=== PATIENT | male | born 1930 | race Caucasian/White ===

== ENCOUNTER 2016-11-18 09:09 | Emergency (ER) | payer OTHER ==
[~2016-11-18 09:09] MED LIST: AMLO5 PO; BUME2TAB PO; COZA100T PO; EPINEPHrine HCL (1:10,000) 1 MG/10 ML SYRINGE IV ONE; FERR140T PO; GLIM4TAB PO; ISOS20TA38 PO; KLOR20TA6 PO; METF-324 PO; METO50TA PO; OMEP20TA PO; PRAV80 PO; RAMI10CA35 PO; TERA2CAP3 PO
--- NOTE | 2016-11-18 09:40 | PD ---
HPI Chief Complaint: Code Blue Time Seen by Provider: 09:27 Travel History International Travel<30 days: No Contact w/Intl Traveler<30days: No Traveled to known affect area: No History of Present Illness HPI 86-year-old male was brought in by EMS in cardiopulmonary arrest. Patient was found unresponsive in his reclining chair this morning. Patient usually sleep in the reclining chair. Patient has history of attention, diabetes, dyslipidemia. Patient is a nonsmoker. 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 Family member states the patient had diaphoresis this morning. ACLS protocol started by EMS. Chest compression started by EMS. Patient was intubated with a Combitube by EMS. Patient was ventilated via Combitube. Patient was given epinephrine IO [address] to the ED. Patient was brought to the ED unresponsive, in [place]. PFSH Past Medical History Arthritis: Yes Blood Disorders: No Heart Rhythm Problems: Yes Cancer: Yes (PROSTATE, SKIN) Cardiovascular Problems: Yes High Cholesterol: Yes Chemotherapy: No Chest Pain: Yes Congestive Heart Failure: No Diabetes: Yes Endocrine: No Genitourinary: Yes Hypertension: Yes Kidney Stones: Yes Musculoskeletal: Yes Neurologic: No Psychiatric: No Respiratory: No Myocardial Infarction: Yes Radiation Therapy: Yes Triglycerides - High: Yes Past Surgical History Abdominal Surgery: No Cardiac Surgery: Yes (CABAG) Endocrine Surgery: No Genitourinary Surgery: No (APPENDECTOMY) Gynecologic Surgery: No Thoracic Surgery: No Other Surgery: Yes (BACK) Social History Alcohol Use: No Tobacco Use: No Allergies-Medications (Allergen,Severity, Reaction): Coded Allergies: No Known Allergies (Verified Allergy, Unknown, 02/10/05) Reported Meds & Prescriptions Reported Meds & Active Scripts Active Metoprolol Tartrate 50 Mg Tab 50 Mg PO Q12 30 Days Norvasc (Amlodipine Besylate) 5 Mg Tab 2.5 Mg PO DAILY 30 Days Pravastatin Sodium (Pravastatin Sod) 80 Mg Tab 80 Mg PO HS 30 Days Reported Ferrous Sulfate 140 Mg Tab 325 Mg PO DAILY Isosorbide Mononitrate 20 Mg Tab 30 Mg PO DAILY Omeprazole 20 Mg Tab 20 Mg PO DAILY Bumetanide 2 Mg Tab 2 Mg PO BID Terazosin Hcl (Terazosin HCl) 2 Mg Cap 2 Mg PO DAILY Cozaar (Losartan Potassium) 100 Mg Tab 100 Mg PO DAILY Klor-Con M20 (Potassium Chloride Microencaps) 20 Meq Tab 20 Meq PO DAILY Glimepiride 4 Mg Tab 4 Mg PO DAILY Metformin HCl ER (Metformin HCl) 1,000 Mg Tab 500 Mg PO BIDPC Review of Systems ROS Limitations: Intubated, Unresponsive Physical Exam Narrative GENERAL: Well-nourished, well-developed patient. SKIN: Warm and dry. HEAD: Normocephalic. EYES: No scleral icterus. No injection or drainage. Pupils dilated, nonreactive. NECK: Supple, trachea midline. No JVD or lymphadenopathy. CARDIOVASCULAR: No cardiac activity. RESPIRATORY: No spontaneous respiration. Breath sounds equal with bagging. GASTROINTESTINAL: Abdomen soft, nondistended. MUSCULOSKELETAL: No cyanosis, or edema. BACK: Nontender without obvious deformity. Neurologic exam: Patient's intubated. Unresponsive. [facility] Medical Decision Making Medical Screen Exam Complete: Yes Emergency Medical Condition: Yes Differential Diagnosis Differential diagnosis including [place], PE, arrhythmia. Narrative Course 86-year-old male was brought in by EMS in cardiopulmonary arrest. Patient's in [place]. ACLS protocol continued. Chest compression continued. Patient was ventilated through Combitube. Patient was given IV epinephrine IV 3 without response. Patient was pronounced. Diagnosis Primary Impression: Cardiopulmonary arrest Disposition: 20 Condition: David Salazar MD Nov 18, 2016 09:40
== END 2016-11-18 11:58 | disposition expired ==
LOC: NEPA 09:09
DX: I46.9 Cardiac arrest, cause unspecified (principal)
CPT/HCPCS: 92950; 99285; J0171